=== PATIENT | female | born 1955 | race African-American/Black ===

== ENCOUNTER 2018-01-08 05:21 | Inpatient (IN) | payer BC ==
[2018-01-08] MEDS: ONDANSETRON 4 MG INJ IV ×4 (06:17→22:15)
[2018-01-08] MEDS: DEXAMETHASONE 4 MG/ML 1 ML INJ IV (06:17)
[2018-01-08] MEDS: ACETAMINOPHEN 1000MG/100ML IV 100 ML IVPB (06:18)
[2018-01-08] MEDS: LANSOPRAZOLE 30 MG CAP PO (06:18)
[2018-01-08] MEDS: oxyCODONE (CR) 10 MG TAB [oxyCONTIN] PO (06:18)
[2018-01-08] MEDS ORDERED: CEFAZOLIN 1 GM INJ (07:00)
[2018-01-08] MEDS ORDERED: EPHEDrine SULFATE 50 MG/5 ML SYG (07:00)
[2018-01-08] MEDS ORDERED: POLYMYXIN B 500000 UNIT INJ (07:02)
[2018-01-08] MEDS ORDERED: ETOMIDATE 20 MG INJ (07:14)
[2018-01-08] MEDS ORDERED: ROCURONIUM 50 MG INJ ×2 (07:14→08:16)
[2018-01-08] MEDS ORDERED: BUPIVACAINE 0.75%/DEXT (SPINAL) 2 ML INJ (07:15)
[2018-01-08] MEDS ORDERED: MIDAZOLAM 1 MG/ML 2 ML INJ (07:15)
[2018-01-08] MEDS ORDERED: LIDOCAINE 1% (MDV) 20 ML INJ (07:15)
[2018-01-08] MEDS ORDERED: morphine SULFATE/PF (10 MG/10 ML) INJ (07:18)
[2018-01-08] MEDS ORDERED: ONDANSETRON 4 MG INJ (08:12)
[2018-01-08] MEDS ORDERED: DEXAMETHASONE 4 MG/ML 1 ML INJ (08:12)
[2018-01-08] MEDS ORDERED: FAMOTIDINE 20 MG INJ (08:12)
[2018-01-08] MEDS: TRANEXAMIC ACID 1,000 MG in NS 100 ML PRE-OP X1 IVPB ×2 (08:23→10:05)
[2018-01-08] MEDS: POLYMYXIN B 500000 UNIT INJ IRR (08:46)
[2018-01-08] MEDS: BACITRACIN 50000 UNITS INJ (08:46)
[2018-01-08] MEDS: POLYMYXIN/BACITRACIN 1L IRRIG (08:48)
[2018-01-08] MEDS ORDERED: SUGAMMADEX SODIUM 200 MG/2 ML VIAL IV (10:05)
[2018-01-08] MEDS: TRANEXAMIC ACID 1,000 MG in NS 100 ML INTRA-OP X1 IVPB (10:05)
[2018-01-08] MEDS ORDERED: BISACODYL 10 MG SUPP PR (10:30)
[2018-01-08] MEDS ORDERED: HYDROmorphONE 0.5 MG/0.5 ML SYG IV ×2 (10:30)
[2018-01-08] MEDS ORDERED: MAGNESIUM HYDROXIDE 30ML CUP PO (10:30)
[2018-01-08] MEDS ORDERED: NA PHOSPHATE/BIPHOS 133 ML ENEMA PR (10:30)
[2018-01-08] MEDS ORDERED: BETHANECHOL 25 MG TAB PO (10:30)
[2018-01-08] MEDS ORDERED: oxyCODONE 5 MG TAB PO ×2 (10:30)
[2018-01-08] MEDS ORDERED: KETOROLAC 30 MG INJ IV (10:30)
[2018-01-08] MEDS ORDERED: ZOLPIDEM 5 MG TAB PO ×2 (10:30)
[2018-01-08] MEDS ORDERED: NALOXONE (0.4 MG/ML) INJ IV ×2 (10:30)
[2018-01-08] MEDS ORDERED: NACL 0.9% 3 ML SYG IV (10:30)
[2018-01-08] MEDS ORDERED: TRIMETHOBENZAMIDE 100 MG/ML VIAL IM (10:30)
[2018-01-08] MEDS ORDERED: NALBUPHINE HCL (10 MG/1 ML) INJ IV (10:30)
[2018-01-08] MEDS ORDERED: ONDANSETRON 4 MG INJ IV ×2 (10:30→11:30)
[2018-01-08] MEDS ORDERED: SENNA/DOCUSATE NA (8.6MG/50MG) TAB PO (10:30)
[2018-01-08] MEDS ORDERED: LABETALOL HCL 20MG INJ IV (11:00)
[2018-01-08] MEDS: ASPIRIN (EC) 325 MG TAB PO ×2 (11:02→21:33)
[2018-01-08] MEDS: DOCUSATE SODIUM 100 MG CAP PO (11:03)
[2018-01-08] MEDS: SOD CHLORIDE 0.9% 1,000 ML IV ×2 (11:03→23:00)
[2018-01-08] MEDS ORDERED: hydrALAzine 20 MG INJ IV (11:30)
[2018-01-08] MEDS ORDERED: HYDROmorphONE (0.2 MG/ML) 10ML SYG IV (11:30)
[2018-01-08] MEDS ORDERED: FENTAnyl 50 MCG/ML VIAL IV (11:30)
[2018-01-08] MEDS: LACTATED RINGER'S 1,000 ML IV* (13:00)
[2018-01-08] MEDS: CEFAZOLIN 2 GM/50 ML (PMX) 50 ML IVPB (13:00)
[2018-01-08] MEDS: CEFAZOLIN 1 GM/50 ML (PMX) 50 ML IVPB ×2 (14:19→21:34)
[2018-01-08] MEDS: HIP PAIN COCKTAIL (CEFUROXIME) INJ (19:32)
[2018-01-08] MEDS: GABAPENTIN 100 MG CAP PO (21:33)
[2018-01-08] MEDS: DIPHENHYDRAMINE 50 MG INJ IV (23:00)
[2018-01-09] MEDS: ONDANSETRON 4 MG INJ IV ×2 (04:30→12:23)
[2018-01-09 05:20] LABS: ADD MAN DIFF? NO
[2018-01-09 05:29] LABS: WHITE BLOOD COUNT 13.1 10^3/ul (4.8-10.8)
[2018-01-09 05:29] LABS: ABNORMAL IP MESSAGE 1; BASOPHILS % 0.1 % (0.0-2.0); HEMATOCRIT 25.8 % (37.0-47.0); HEMOGLOBIN 9.1 g/dl (12.0-16.0); LYMPHOCYTES # 0.4 10^3/ul (0.8-2.9); LYMPHOCYTES % 2.7 % (15.0-51.0); MEAN CORPUSCULAR HEMOGLOBIN 32.4 pg (29.0-33.0); MEAN CORPUSCULAR HGB CONC 35.3 g/dl (32.0-37.0); MEAN CORPUSCULAR VOLUME 91.8 fl (82.0-101.0); MONOCYTE # 0.9 10^3/ul (0.3-0.9); MONOCYTES % 6.5 % (0.0-11.0); NEUTROPHIL # 11.8 10^3/ul (1.6-7.5); NEUTROPHILS % 90.2 % (39.0-77.0); PLATELET COUNT 181 10^3/UL (140-415); RED BLOOD COUNT 2.81 10^6/ul (4.20-5.40)
[2018-01-09 05:43] LABS: ANION GAP 10 (8-16); BLOOD UREA NITROGEN 17 mg/dl (7-20); CALCIUM 8.6 mg/dl (8.4-10.2); CARBON DIOXIDE 26 mmol/L (21-31); CHLORIDE 109 mmol/L (97-110); CREATININE 0.91 mg/dl (0.44-1.00); GLUCOSE 114 mg/dl (70-220); POTASSIUM 3.3 mmol/L (3.5-5.1); SODIUM 142 mmol/L (135-144)
[2018-01-09 05:48] LABS: MAGNESIUM 1.5 mg/dl (1.7-2.5)
[2018-01-09 05:50] LABS: POSITIVE DIFF @See below
[2018-01-09] MEDS: PANTOPRAZOLE (EC) 40 MG TAB PO (06:10)
[2018-01-09] MEDS: CEFAZOLIN 1 GM/50 ML (PMX) 50 ML IVPB (06:10)
[2018-01-09 06:13] LABS: ADD UMIC YES; UR ASCORBIC ACID NEGATIVE (NEGATIVE); UR BACTERIA FEW /HPF (NONE SEEN); UR BILIRUBIN (Dip) NEGATIVE (NEGATIVE); UR BLOOD (Dip) 3+ mg/dL (NEGATIVE); UR CLARITY SLIGHTLY CLOUDY (CLEAR); UR COLOR YELLOW (YELLOW); UR GLUCOSE (Dip) NEGATIVE (NEGATIVE); UR KETONES (Dip) NEGATIVE (NEGATIVE); UR LEUKOCYTE ESTERASE (Dip) NEGATIVE Leu/ul (NEGATIVE); UR MUCUS MANY /HPF (NONE SEEN); UR NITRITE (Dip) NEGATIVE (NEGATIVE); UR RBC 105 /HPF (0-5); UR SPECIFIC GRAVITY (Dip) 1.026 (1.003-1.030); UR TOTAL PROTEIN (Dip) NEGATIVE (NEGATIVE); UR UROBILINOGEN (Dip) NEGATIVE (NEGATIVE); UR WBC 7 /HPF (0-5)
[2018-01-09] MEDS: DOCUSATE SODIUM 100 MG CAP PO ×2 (08:32→20:55)
[2018-01-09] MEDS: HYDROCHLOROTHIAZIDE 25 MG TAB PO (08:32)
[2018-01-09] MEDS: GABAPENTIN 100 MG CAP PO ×2 (08:33→20:55)
[2018-01-09] MEDS: ASPIRIN (EC) 325 MG TAB PO ×2 (08:33→20:55)
[2018-01-09] MEDS: FERROUS FUMARATE (SR) TAB PO ×2 (08:33→20:55)
[2018-01-09] MEDS: CELECOXIB 200 MG CAP PO ×2 (08:33→20:55)
[2018-01-09] MEDS: LOSARTAN 50 MG TAB PO (08:33)
[2018-01-09] MEDS: ANASTROZOLE 1 MG TAB PO ×2 (09:00→20:57)
[2018-01-09] MEDS: SOD CHLORIDE 0.9% 1,000 ML IV ×2 (11:24→23:31)
[2018-01-09] MEDS ORDERED: ONDANSETRON 4 MG INJ IV (12:00)
[2018-01-09] MEDS: POTASSIUM CHLORIDE (SR) 10 MEQ TAB PO (12:24)
[2018-01-09] MEDS: MAGNESIUM SULFATE 3 GM in DEXTROSE 5% 100 ML IVPB (13:46)
[2018-01-09] MEDS: oxyCODONE 5 MG TAB PO (20:07)
[2018-01-09] MEDS: ATORVASTATIN 40 MG TAB PO (20:58)
[2018-01-09] MEDS: DIPHENHYDRAMINE 50 MG INJ IV (23:29)
[2018-01-10] MEDS: oxyCODONE 5 MG TAB PO ×4 (01:58→18:14)
[2018-01-10 05:28] LABS: ADD MAN DIFF? NO
[2018-01-10 05:41] LABS: BASOPHILS % 0.2 % (0.0-2.0); EOSINOPHILS # 0.1 10^3/ul (0.0-0.5); EOSINOPHILS % 0.7 % (0.0-7.0); HEMATOCRIT 24.5 % (37.0-47.0); HEMOGLOBIN 8.5 g/dl (12.0-16.0); LYMPHOCYTES # 1.4 10^3/ul (0.8-2.9); LYMPHOCYTES % 17.3 % (15.0-51.0); MEAN CORPUSCULAR HEMOGLOBIN 32.2 pg (29.0-33.0); MEAN CORPUSCULAR HGB CONC 34.7 g/dl (32.0-37.0); MEAN CORPUSCULAR VOLUME 92.8 fl (82.0-101.0); MEAN PLATELET VOLUME 11.5 fl (7.4-10.4); MONOCYTE # 0.7 10^3/ul (0.3-0.9); MONOCYTES % 8.6 % (0.0-11.0); NEUTROPHIL # 5.9 10^3/ul (1.6-7.5); NEUTROPHILS % 72.8 % (39.0-77.0); PLATELET COUNT 154 10^3/UL (140-415); RED BLOOD COUNT 2.64 10^6/ul (4.20-5.40); RED CELL DISTRIBUTION WIDTH 14.5 % (11.5-14.5)
[2018-01-10 05:41] LABS: WHITE BLOOD COUNT 8.2 10^3/ul (4.8-10.8)
[2018-01-10] MEDS: PANTOPRAZOLE (EC) 40 MG TAB PO (06:04)
[2018-01-10 06:47] LABS: ANION GAP 10 (8-16); BLOOD UREA NITROGEN 19 mg/dl (7-20); CALCIUM 8.2 mg/dl (8.4-10.2); CARBON DIOXIDE 31 mmol/L (21-31); CHLORIDE 109 mmol/L (97-110); CREATININE 0.97 mg/dl (0.44-1.00); GLUCOSE 89 mg/dl (70-220); POTASSIUM 3.2 mmol/L (3.5-5.1); SODIUM 147 mmol/L (135-144)
[2018-01-10] MEDS: DOCUSATE SODIUM 100 MG CAP PO (09:46)
[2018-01-10] MEDS: ASPIRIN (EC) 325 MG TAB PO (09:47)
[2018-01-10] MEDS: FERROUS FUMARATE (SR) TAB PO (09:48)
[2018-01-10] MEDS: LOSARTAN 50 MG TAB PO (09:49)
[2018-01-10] MEDS: HYDROCHLOROTHIAZIDE 25 MG TAB PO (09:49)
[2018-01-10] MEDS: CELECOXIB 200 MG CAP PO (09:50)
[2018-01-10] MEDS: GABAPENTIN 100 MG CAP PO (09:50)
[2018-01-10] MEDS: POTASSIUM CHLORIDE (SR) 20 MEQ TAB PO (09:56)
[2018-01-10] MEDS: SODIUM CHLORIDE 0.45% 500 ML BAG IV* (11:04)
== END 2018-01-10 20:30 | disposition home health service (06) | DRG 470 ==
LOC: REC 05:21 → MS1 12:10
PROC: 0SR904A Replacement of Right Hip Joint with Ceramic on Polyethylene Synthetic Substitute, Uncemented, Open Approach (ICD-10-PCS; principal; 2018-01-08 07:30)
DX: M16.11 Unilateral primary osteoarthritis, right hip (principal); E87.0 Hyperosmolality and hypernatremia; I10 Essential (primary) hypertension; E78.5 Hyperlipidemia, unspecified; E87.6 Hypokalemia; E83.42 Hypomagnesemia; D63.8 Anemia in other chronic diseases classified elsewhere; E86.0 Dehydration; Z90.12 Acquired absence of left breast and nipple; Z85.3 Personal history of malignant neoplasm of breast
CPT/HCPCS: 71045; 72170; 73500; 73530; 80048; 81001; 83735; 84443; 85025; 87081; 87086; 97110; 97116; 97161; 97165; 97530